=== PATIENT | female | born 1995 | race Two or more races ===

== ENCOUNTER 2018-02-04 22:15 | Emergency (ER) | payer OTHER ==
[2018-02-04 22:51] LABS: URINE HCG POC HCG NEGATIVE (Negative)
[2018-02-04] MEDS: LIDO:MAALOX 1:1 20 ML SINGLE DOSE. SWSW (23:13)
== END 2018-02-04 23:25 | disposition home or self-care (01) ==
LOC: ER 22:15
DX: K29.70 Gastritis, unspecified, without bleeding (principal)
CPT/HCPCS: 81025; 99283